=== PATIENT | male | born 1965 | race Caucasian/White ===

== ENCOUNTER 2022-09-14 12:43 | Emergency (ER) | payer BC, SELFPAY ==
[2022-09-14 12:46] VITALS: BP 168/117; PULSE 73; RESP 18; TEMP 36.1; O2SAT 99; BMI 28.8
--- NOTE | 2022-09-14 13:08 | EKG12_ITS ---
Test Reason : SOB Blood Pressure : / mmHG Vent. Rate : 069 BPM Atrial Rate : 069 BPM P-R Int : 168 ms QRS Dur : 084 ms QT Int : 378 ms P-R-T Axes : 054 012 027 degrees QTc Int : 405 ms Normal sinus rhythm Normal ECG Confirmed by TATA BNEITEZ, DAT ([id number]), production editor SILVIA WOLFE ([id number]) on 09/15/2022 1:44:51 PM Referred By: Confirmed By:DAT PAYTON MD
--- NOTE | 2022-09-14 13:08 | RAD_ITS ---
STUDY: X-RAY CHEST REASON FOR EXAM: Male, 56 years old. Shortness of Breath TECHNIQUE: PA and lateral views of the chest. COMPARISON: None. FINDINGS: EKG electrodes are seen. The lungs are clear and expanded. Scattered calcified granulomas. There is no demonstrated pleural abnormality. Normal size heart. Normal mediastinum and aury. Normal visualized pulmonary arteries. Normal visualized aortic arch and descending thoracic aorta. There are diffuse degenerative changes of the visualized thoracic spine. Normal visualized ribs, clavicles, and shoulders. There is no demonstrated abnormality of the visualized soft tissue structures of the upper abdomen. RAD/Chest PA and Lateral IMPRESSION: No acute abnormality is seen. Electronically Signed: Dada Hargrove MD at 13:51 EST ,
--- NOTE | 2022-09-14 13:09 | ED.VIS.DYS ---
HPI History of Present Illness Chief Complaint: Shortness of Breath Narrative Narrative: 56-year-old male past medical history of altitude induced asthma, presents with shortness of breath that he has had for the last 5 days. He states he feels short of breath while exerting himself. He likes to workout, and today he had to stop his work short because he felt very winded. Additionally, he has had these intermittent spells where he feels dizzy and lightheaded for a few seconds, and then it will resolve. He denies other symptoms. No chest pain, no fever, no cough. He denies any leg swelling, no other symptoms. He made an appointment to see his primary care provider in 2 days, but was concerned when he had to stop his workout short. [facility] Medical History Asthma Allergy/AdvReac Type Severity Reaction Status Date / Time ciprofloxacin [From Cipro] Allergy NEEDS Verified 09/14/22 12:46 FOLLOW-UP levofloxacin [From Levaquin] Allergy NEEDS Verified 09/14/22 12:46 FOLLOW-UP amoxicillin [From Augmentin] AdvReac Other Verified 09/14/22 12:46 clavulanic acid AdvReac Other Verified 09/14/22 12:46 [From Augmentin] Social History Smoking Status: Never smoker ROS ROS ED ROS Narrative Constitutional: No fever, no chills. HEENT: No sore throat. No neck pain. No loss of vision. No rhinorrhea. Cardiovascular: No chest pain. No palpitations. No pedal edema. Respiratory: No cough, positive shortness of breath with exertion. Abdominal: No abdominal pain. No nausea. No vomiting. Genitourinary: No dysuria. No hematuria. Musculoskeletal: No myalgias. No arthralgias. Neurologic: No headaches. Positive brief, intermittent dizziness. Positive lightheadedness. Skin: No rash. No change in color. Psychiatric: No depression. No anxiety. EXAM Physical Exam Narrative Exam Narrative: Afebrile. Vital signs noted. HEENT: Normocephalic. Atraumatic. PERRL, EOMI. Neck soft and supple. No point tenderness or step off. Cardiovascular: Regular rate and rhythm. No murmurs, rubs, or gallops appreciated. Respiratory: No tachypnea. Lungs clear to auscultation bilaterally. Gastrointestinal: Abdomen soft, nontender, with normoactive bowel sounds. No rebound or guarding. Neurological: Awake. Alert. Nonfocal, nonlateralizing. Skin: No rash. Normal color. No pallor. Musculoskeletal: No pedal edema. Full range of motion extremities. Const Vital Signs: 09/14/22 12:46 09/14/22 12:56 09/14/22 14:47 Temperature 96.9 F L Temperature Source Temporal Pulse Rate 73 Respiratory Rate 18 Respiratory Effort Short of Breath Blood Pressure 168/117 H 158/76 H Blood Pressure Mean 134 103 Pulse Ox 99 Oxygen Delivery Method Room Air MDM MDM MDM Narrative Medical decision making narrative: In the differential diagnosis is pulmonary embolism versus pneumothorax versus pneumonia. EKG was obtained and interpreted by myself. It demonstrates normal sinus rhythm at 69 bpm without ectopy or acute ST changes. No STEMI. I reviewed his laboratory work and he has a normal white count of 6.6, hemoglobin 17.0, hematocrit 49.3. Normal platelet count of 430. D-dimer is negative at 0.31. BMP is remarkable for a chloride of 108, slightly elevated, BUN of 19 with creatinine of 0.98. Glucose 97 with a normal anion gap of 9. High-sensitivity troponin is 22 and I do feel that this is greater than a 6-hour troponin as he states he has been this way for the last 5 days. Chest x-ray interpreted by myself reveals no evidence of pneumothorax or pneumonia. I reviewed the radiology report which confirms my interpretation. Pulse ox is 99% on room air without evidence of hypoxia. Currently, I am unsure as to why patient has subjective dyspnea on exertion. He states he will use his Breo inhaler at home. He did have elevated blood pressure of 168/117, upon repeat check without intervention is still slightly elevated at 158/76 but he is asymptomatic with it. He was told to keep track of his blood pressure and follow-up with his primary care provider on , 2 days from now as scheduled. He was also told he may need referral to pulmonology for pulmonary function tests. I do feel that he has been ruled out for acute coronary syndrome which was also in the differential, along with pulmonary embolism as he has a negative D-dimer and he is not tachycardic and he has a normal pulse ox. Disposition is discharged home in stable condition. Lab Data Attestation: I reviewed the patient's lab results. Labs: Laboratory Results - last 24 hr 09/14/22 09/14/22 09/14/22 13:25 13:25 13:25 WBC 6.6 RBC 5.36 Hgb 17.0 H Hct 49.3 MCV 92.0 MCH 31.7 MCHC 34.5 RDW Std Deviation 41.3 RDW Coeff of Mary 12.4 Plt Count 430 MPV 9.7 Immature Gran % (Auto) 0.200 Neut % (Auto) 66.3 Lymph % (Auto) 25.5 Payne % (Auto) 4.5 Eos % (Auto) 2.7 Baso % (Auto) 0.8 Absolute Neuts (auto) 4.4 Absolute Lymphs (auto) 1.69 Nucleated RBC % 0 D-Dimer Quant (PE/DVT) 0.31 Sodium 140 Potassium 4.0 Chloride 108 H Carbon Dioxide 23.0 Anion Gap 9 BUN 19 H Creatinine 0.98 Estim Creat Clear Calc 86.17 Est GFR (MDRD) Af Amer 103 Est GFR (MDRD) Non-Af 85 BUN/Creatinine Ratio 19.5 Glucose 97 Calcium 9.4 Troponin I High Sens 22 Radiography Diagnostic Testing: Clinical Impression(s) from Imaging Studies Chest X-Ray 09/14/22 13:08 IMPRESSION: No acute abnormality is seen. Electronically Signed: Dada Hargrove MD at 13:51 EST Reading Location ID and State: [address] [place] [address] , Service support , Discharge Plan Triage Chief Complaint: Shortness of Breath ED Provider: Leo Carroll Dx/Rx/DC Orders Clinical Impression: SOB (shortness of breath), Dyspnea on exertion, Elevated blood pressure reading Instructions: ED Dyspnea, ED Hypertension, To Be Confirmed Primary Care Provider: Lizette Godinez,Out of Referrals: Lizette Godinez,Out of [Primary Care Provider] - Activity Restrictions/Additional Instructions: Follow-up with your primary care physician on as scheduled. You may need referral to pulmonology. Use your Breo inhaler when you get home. Return with any new or worsening symptoms. Keep track of your blood pressure for your primary care provider. Disposition Disposition: Home, Self Care
--- NOTE | 2022-09-14 13:20 | NURSING ---
no old ekgs
[2022-09-14 13:40] LABS: Absolute Lymphocyte Count 1.69 X10^3/uL (0.83-4.51); Absolute Neutrophil Count 4.4 X10^3/uL (2.0-7.7); Basophil# 0.05 X10^3/uL; Basophil% 0.8 % (0-1); Eosinophil# 0.18 X10^3/uL; Eosinophils% 2.7 % (0-5); Hematocrit 49.3 % (40-54); Lymphocyte # 1.69 X10^3/ul (0.83-4.51); Lymphocyte % 25.5 % (19-41); Mean Corp Hgb Conc 34.5 g/dL (32-36); Mean Corpuscular Hgb 31.7 pg (27.0-32.0); Mean Platelet Vol. 9.7 fl (6.2-12.0); Monocyte% 4.5 % (0-10); NRBC Flagged by Analyzer 0 % (0-5); Neutrophil # 4.41 X10^3/uL (2.7-7.7); Neutrophil % 66.3 % (47-70); Platelet Count 430 K/mm3 (150-450); RBC Distribution Width CV 12.4 % (11.6-14.6); RBC Distribution Width SD 41.3 fl (35.1-43.9); Red Blood Count 5.36 M/mm3 (4.6-6.2); White Blood Count 6.6 K/mm3 (4.4-11.0)
[2022-09-14 13:49] LABS: D-Dimer Quantitative (DVT/PE) 0.31 FEU/ug/m (0.27-0.49)
[2022-09-14 13:54] LABS: Anion Gap 9 (5-15); BUN 19 mg/dL (7-18); BUN/Creat Ratio 19.5 RATIO (10-20); Calcium,Total 9.4 mg/dL (8.5-10.1); Chloride 108 mmol/L (98-107); Creatinine, Serum 0.98 mg/dL (0.70-1.30); EST Glomerular Filtration Rate 85 mL/min (>60); Est Glom Filt Rate - Afr Amer 103 mL/min (>60); Estimated Creatinine Clearance 86.17 ml/min; Glucose 97 mg/dL (74-106); Sodium Level 140 mmol/L (136-145); Troponin-I HS 22 pg/mL (3.0-78.0)
[2022-09-14 14:47] VITALS: BP 158/76
[2022-09-14 14:58] VITALS: BP 158/76
== END 2022-09-14 15:00 | disposition home or self-care (01) ==
PROVIDERS: Emergency Provider Emergency Medicine; Visit Provider Emergency Medicine
DX: R06.02 Shortness of breath (principal); R03.0 Elevated blood-pressure reading, without diagnosis of hypertension; R06.09 Other forms of dyspnea; J45.909 Unspecified asthma, uncomplicated
CPT/HCPCS: 71046; 80048; 84484; 85025; 85379; 93005; 99284; A4216